=== PATIENT | female | born 1945 | race Hispanic/Latino ===

== ENCOUNTER 2017-10-21 17:17 | Emergency (ER) | payer MEDICARE ==
[2017-10-21 17:54] LABS: APPEARANCE,URINE Clear (CLEAR); BILIRUBIN,URINE Negative (NEGATIVE); COLOR,URINE Yellow (YELLOW); GLUCOSE, URINE (UA) Negative (NEGATIVE); KETONES,URINE Negative (NEGATIVE); LEUKOCYTE ESTERASE ,URINE Trace (NEGATIVE); NITRATE,URINE Negative (NEGATIVE); OCCULT BLOOD,URINE Small (NEGATIVE); PROTEIN,URINE Negative (NEGATIVE)
[2017-10-21 18:04] LABS: BACTERIA,URINE Few /HPF (None Seen); MUCUS,URINE Rare LPF (None Seen); SQUAMOUS EPITHELIAL CELL,UR Few /HPF (0-2)
[2017-10-21] MEDS ORDERED: NITROFURANTOIN MONOHYD/M-CRYST 100 MG CAPSULE PO ONE (19:06)
== END 2017-10-21 19:16 | disposition home or self-care (01) ==
LOC: EDH 17:17
DX: N30.01 Acute cystitis with hematuria (principal); E11.9 Type 2 diabetes mellitus without complications; I10 Essential (primary) hypertension; K21.9 Gastro-esophageal reflux disease without esophagitis; Z91.041 Radiographic dye allergy status; Z88.1 Allergy status to other antibiotic agents; Z88.6 Allergy status to analgesic agent; Z90.710 Acquired absence of both cervix and uterus; Z90.49 Acquired absence of other specified parts of digestive tract
CPT/HCPCS: 81001; 87088; 87186

== ENCOUNTER 2019-05-02 10:46 | Inpatient (IN) | payer MEDICARE ==
[~2019-05-02] VITALS: Ht 157.5 cm; Wt 70.1 kg
[2019-05-02 11:15] LABS: BASOPHILS % (AUTO) 0.4 % (0.0-5.0); EOSINOPHILS % (AUTO) 0.8 % (0.0-8.0); HEMATOCRIT 43.9 % (36-48); LYMPHOCYTES % (AUTO) 28.1 % (21.0-51.0); MEAN CORPUSCULAR HEMOGLOBIN 30.6 pg (27.0-33.0); MEAN CORPUSCULAR HGB CONC 34.2 g/dL (32.0-36.0); MEAN CORPUSCULAR VOLUME 89.4 fL (79-99); MONOCYTES % (AUTO) 7.1 % (3.0-13.0); NEUTROPHILS % (AUTO) 63.6 % (40.0-77.0); NUCLEATED RED BLOOD CELLS 0.1 % (0.0-0.19); PLATELET COUNT (AUTO) 204 K/uL (130-400); RED BLOOD CELL COUNT(AUTO) 4.91 MIL/uL (4.00-5.50); RED CELL DISTRIBUTION WIDTH 13.4 % (11.0-15.5); WHITE BLOOD COUNT (AUTO) 5.5 K/uL (4.8-10.8)
[2019-05-02 11:29] LABS: CREATININE 0.7 mg/dL (0.5-1.5)
[2019-05-02 11:32] LABS: INR 0.95 (0.85-1.15); PARTIAL THROMBOPLASTIN TIME 23.1 SEC (26.3-35.5)
[2019-05-02 11:33] LABS: ALBUMIN 3.9 g/dL (3.5-5.0); BILIRUBIN,TOTAL 0.8 mg/dL (0.2-1.0); TOTAL PROTEIN, SERUM 7.4 g/dL (6.0-8.3)
[2019-05-02 11:37] LABS: APPEARANCE,URINE Clear (CLEAR); BILIRUBIN,URINE Negative (NEGATIVE); COLOR,URINE Yellow (YELLOW); GLUCOSE, URINE (UA) TRACE mg/dL (NEGATIVE); KETONES,URINE Negative (NEGATIVE); LEUKOCYTE ESTERASE ,URINE Negative (NEGATIVE); NITRATE,URINE Negative (NEGATIVE); OCCULT BLOOD,URINE Negative (NEGATIVE); PROTEIN,URINE Negative (NEGATIVE)
[2019-05-02 11:42] LABS: AMPHET/METH SCREEN,URINE NEGATIVE (NEGATIVE); BARBITURATE SCREEN, URINE NEGATIVE (NEGATIVE); BENZODIAZEPINES SCREEN,URINE NEGATIVE (NEGATIVE); CANNABINOID SCREEN,URINE NEGATIVE (NEGATIVE); COCAINE SCREEN,URINE NEGATIVE (NEGATIVE); OPIATE SCREEN,URINE NEGATIVE (NEGATIVE); PHENCYCLIDINE SCREEN,URINE NEGATIVE (NEGATIVE)
[2019-05-02] MEDS ORDERED: LORAZEPAM 2 MG/ML 1 ML VIAL ONE (12:19)
[2019-05-02 12:29] LABS: BACTERIA,URINE Rare /HPF (None Seen); RBC,URINE 0-1 /HPF (0-1); SQUAMOUS EPITHELIAL CELL,UR Rare /HPF (0-2); WBC,URINE 0-1 /HPF (0-1)
[2019-05-02] MEDS ORDERED: METHYLPREDNISOLONE SOD SUCC 40MG/ML 1ML ONE (18:21)
[2019-05-02 20:40] VITALS: BP 150/69
[2019-05-02] MEDS ORDERED: OMEP40CA13 PO (21:48)
[2019-05-02] MEDS ORDERED: METF-444 PO (21:48)
[2019-05-02] MEDS ORDERED: SIMV40TA59 PO (21:48)
[2019-05-03] VITALS: BP 146/73
[2019-05-03] MEDS ORDERED: GLUCAGON 1MG KIT 1 MG ML IM PRN (02:00)
[2019-05-03] MEDS ORDERED: DEXTROSE 50%-WATER 50 ML DISP.SYRIN IV PRN (02:00)
[2019-05-03] MEDS ORDERED: ACETAMINOPHEN 325 MG TAB PO PRN (02:00)
[2019-05-03 04:00] VITALS: BP 145/72
--- NOTE | 2019-05-03 06:52 | NUR ---
MD RASHEED ALBA VISITED WITH PATIENT, POC DISCUSSED. NO NEW ORDERS AT THIS TIME. VITALS STABLE. AFEBRILE. CALL LIGHT WITHIN REACH. WILL CONTINUE TO BE OBSERVED. Addendum: 05/03/19 at 0656 by GIANA GARCÍA RN RN Amended: Links added.
[2019-05-03] MEDS: INSULIN R PO SS1 SQ SCH ×2 (07:30→11:30)
[2019-05-03 07:53] VITALS: BP 139/76
[2019-05-03] MEDS ORDERED: PANTOPRAZOLE SODIUM 40 MG TABLET.DR PO SCH (07:54)
[2019-05-03] MEDS ORDERED: METHYLPREDNISOLONE SOD SUCC 40MG/ML 1ML IVP SCH (09:00)
[2019-05-03 11:55] VITALS: BP 147/85
--- NOTE | 2019-05-03 12:46 | NUR ---
DCP CM met with pt and spouse discussed dc plans. Pt is independent prior to admission, lives at home with spouse. Pt has a shower chair, walker, nebulizer machine. Declined placement, feels safe to go back home, spouse able to assist with transportation and needs as necessary. DC plan to home once stable. CM to cont to follow up. Addendum: 05/03/19 at 1248 by DEMETRA HARO LVN CM Amended: Links added.
[2019-05-03] MEDS ORDERED: SIMVASTATIN 20 MG TABLET PO SCH (21:00)
== END 2019-05-03 15:37 | disposition home or self-care (01) | DRG 74 ==
LOC: EDH 10:46 → EDHIP 16:48 → 4BH 19:43
PROVIDERS: ADMIT Internal Medicine Nephrology; ATTEND Internal Medicine Nephrology
DX: M54.12 Radiculopathy, cervical region (principal); M19.90 Unspecified osteoarthritis, unspecified site; G43.909 Migraine, unspecified, not intractable, without status migrainosus; E11.9 Type 2 diabetes mellitus without complications; E78.5 Hyperlipidemia, unspecified; I10 Essential (primary) hypertension; J44.9 Chronic obstructive pulmonary disease, unspecified; Z90.710 Acquired absence of both cervix and uterus; Z88.5 Allergy status to narcotic agent; Z88.8 Allergy status to other drugs, medicaments and biological substances; Z91.041 Radiographic dye allergy status; Z83.3 Family history of diabetes mellitus; Z82.49 Family history of ischemic heart disease and other diseases of the circulatory system
CPT/HCPCS: 36415; 70450; 71045; 72125; 80053; 80305; 81001; 82550; 82948; 83721; 84484; 85025; 85610; 85730; 93005; G0378; J1815; J2060; J2920

== ENCOUNTER → 2019-06-03 | Outpatient (CLI) | payer MEDICARE ==
[~2019-06-03] MED LIST: METF-444 PO; OMEP40CA13 PO; SIMV40TA59 PO
== END | disposition home or self-care (01) ==
LOC: SHCH 09:34
PROVIDERS: ATTEND Internal Medicine Cardiovascular Disease
DX: I51.7 Cardiomegaly (principal); R00.2 Palpitations
CPT/HCPCS: 93306

== ENCOUNTER → 2019-12-26 | Outpatient (CLI) | payer MEDICARE | END | disposition home or self-care (01) | LOC: SHCH 14:53 | PROVIDERS: ATTEND Internal Medicine Cardiovascular Disease | DX: I87.2 Venous insufficiency (chronic) (peripheral) (principal) ==

== ENCOUNTER → 2023-06-15 | Outpatient (CLI) | payer OTHER ==
[~2023-06-15] MED LIST changes: -OMEP40CA13 PO; +OMEP40CA21 PO
== END | disposition home or self-care (01) ==
LOC: SHCH 13:32
PROVIDERS: ATTEND Internal Medicine Cardiovascular Disease
DX: I87.2 Venous insufficiency (chronic) (peripheral) (principal); I87.1 Compression of vein; I10 Essential (primary) hypertension; E78.5 Hyperlipidemia, unspecified; I49.1 Atrial premature depolarization
CPT/HCPCS: 93970

== ENCOUNTER 2024-06-14 11:03 | Emergency (ER) | payer OTHER ==
[~2024-06-14] VITALS: Ht 154.9 cm; Wt 67.1 kg
--- NOTE | 2024-06-14 11:15 | ERN ---
General Chief Complaint: Mechanical Fall Stated Complaint: fall Time Seen by MD: 11:07 Time Seen by Midlevel: 11:07 Source: patient, EMS History of Present Illness Initial Comments Patient is a 79-year-old female being brought in by EMS following a mechanical ground level fall. Patient was in the parking lot outside of the dermatology clinic when she got off her car and accidentally tripped and fell onto her right side. She does report hitting the right side of the forehead but denies any loss of consciousness. On arrival she was reporting pain to her neck and right side of the head. Initially she also had pain to the right side of her ribs but that has completely resolved. Patient was ambulatory on scene. She denies being on any blood thinners. Patient has no other concerns at this time. Allergies: Coded Allergies: azithromycin (Unverified Allergy, Intermediate, RASH, 05/02/19) Uncoded Allergies: IV IODINE,CODEINE (Allergy, Unknown, HIVES,EMESIS, 05/02/19) Home Meds Reported Medications Omeprazole (Omeprazole) 40 Mg Capsule.dr, 40 MG PO ACBKFST, CAP 05/02/19 Simvastatin (ZOCOR) 40 Mg Tablet, 40 MG PO HS, TAB 05/02/19 Metformin HCl (Metformin HCl) 500 Mg Tablet, 500 MG PO BID, TAB 05/02/19 ROS Dictation CONSTITUTIONAL: Negative except for HPI HEAD/FACE: Negative except for HPI EENT: Negative except for HPI RESPIRATORY: Negative except for HPI GASTROINTESTINAL/ABDOMINAL: Negative except for HPI GENITOURINARY: Negative except for HPI MUSCULOSKELETAL: Negative except for HPI INTEGUMENTARY: Negative except for HPI NEUROLOGICAL/PSYCH: Negative except for HPI HEMATOLOGIC/LYMPHATIC: Negative except for HPI All Systems Negative, Except as noted above. 13 point review of systems assessed and all negative except for above. Physical Exam Physical Exam Dictation Vital Signs reviewed General Appearance: Alert, oriented x 3, no acute distress, well developed, nourished. Head and Face: Right forehead contusion Eyes: PERRL, pink conjunctivas, eyelid no trauma, anterior chamber with arcus senilis. Ears: Pinnas intact and no signs of trauma or erythema ear canals clear and no discharge TM no erythema Nose: No discharge, no bleeding. Oropharynx: Mouth normal, tongue pink, pharynx clear,no erythema, tonsils no exudates, no abscesses noted, mucous membrane moist Neck: Supple, non-tender, no thyromegaly, no masses, no JVD, no bruits Breast:Deferred Chest:No tenderness, no crepitus, no paradoxical movement, no retractions Lungs:Clear, well-ventilated, symmetric, no rales, no wheezing, no rhonchi, no stridor, good breath sounds bilaterally Heart: Regular rate, regular rhythm, no murmur, no gallops Vascular: no peripheral edema, Abdomen: Soft, positive bowel sounds, nondistended, no guarding, nontender, no rebound, no masses no hepatomegaly, no splenomegaly, no Greenberg's sign, no hernias. Rectal: Deferred Genital: Deferred Neurological: Normal speech, motor function intact, sensory function intact Musculoskeletal: Neck nontender, full range of motion, back nontender, full range of motion, Extremities: nontender, full range of motion Skin: Color pink, dry, no turgor, no rash, no lacerations, no abrasions, no contusions. Lymphatic: Deferred MDM MDM: Patient is a 79-year-old female being brought in by EMS following a mechanical ground level fall. Patient was in the parking lot outside of the dermatology clinic when she got off her car and accidentally tripped and fell onto her right side. She does report hitting the right side of the forehead but denies any loss of consciousness. On arrival she was reporting pain to her neck and right side of the head. Initially she also had pain to the right side of her ribs but that has completely resolved. Patient was ambulatory on scene. She denies being on any blood thinners. Patient has no other concerns at this time. On physical examination patient has a contusion over the right forehead. She has some mild paraspinal muscle tenderness to the cervical region no midline tenderness however given her mechanism of action along with her age a CT scan of the head and neck were obtained which did not show any acute fracture. A chest x-ray was obtained to rule out any pneumothorax or rib fractures. Chest x-ray does not show any acute abnormality. Patient was observed in the emergency department for over2 hours and has remained stable. She refused pain medication in the ER. Patient is stable for discharge at this time. Differential diagnosis: Closed head injury, cervical fracture, intracranial bleed, skull fracture There are no social concerns with this patient. Prescription drug management Prescriptions will include: None Medical management and examination interpretation discussions were had by me with other qualified healthcare professionals as indicated for the patient's care. ED Course Orders Procedure Category Date Status Time Chest 1vw RAD 06/14/24 Resulted 11:12 Ct Cervical Spine W/O CT 06/14/24 Resulted Contrast 11:12 Ct Head/Brain W/O CT 06/14/24 Resulted Contrast 11:12 Vital Signs Date Time Temp Pulse Resp B/P (MAP) Pulse Ox O2 Delivery O2 Flow Rate FiO2 06/14/24 13:24 98.4 85 17 157/73 97 Room Air* 0 21 06/14/24 11:07 98.4 96 17 164/75 97 Room Air* 0 21 06/14/24 11:07 98.4 96 17 164/75 97 Room Air 0 [facility] [address] [address] IMAGING REPORT Signed PATIENT: MEHNAZ PRAKASH MR#: [id number] : 1945 SEX: F AGE: 79 LOCATION: EDH ORDER 1113 STATUS: REG ER REPORT#: [id number] SERVICE 1112 REASON: fall head injury/neck pain ORDERING PHYSICIAN: SHIRLEY RAMOS PROCEDURE: C SPIN WO - CT CERVICAL SPINE W/O CONTRAST CT CERVICAL SPINE W/O CONTRAST HISTORY: Tripped and fall COMPARISON: None TECHNIQUE: Multiple sequential axial images of the cervical spine were obtained including post processing sagittal and coronal reconstruction images. Patient was not given contrast through intravenous route. FINDINGS: There are degenerative changes with cervical spine spondylosis. Disc space narrowings are seen at C4, C5 and C6 levels. Postop changes are seen with orthopedic fixation plates and screws at C4, C5 and C6 levels with disc fusions. There is straightening of normal lordotic cervical curvature which may be related to muscle spasm or positioning. There is no loss of vertebral height. Evaluation for disc and cord pathology is limited with CT study. No evidence of fracture or dislocation is seen. IMPRESSION: 1. No fracture is seen. DJD with cervical spine spondylosis. There are postop changes limiting evaluation. CT was performed with one or more following dose reduction techniques: automated exposure control, adjustment of the mA and kv according to patient's size, or use of a iterative reconstruction technique. DICTATED BY: PATRICIA APONTE MD DATE: 06/14/24 1247 ELECTRONICALLY SIGNED BY: PATRICIA APONTE MD DATE: 06/14/24 125 [facility] [address] [place] [id number] IMAGING REPORT Signed PATIENT: MEHNAZ PRAKASH MR#: [id number] : 1945 SEX: F AGE: 79 LOCATION: ED ORDER 12 STATUS: REG [facility] REPORT#: [id number] SERVICE 111 REASON: fall ORDERING PHYSICIAN: SHIRLEY RAMOS PROCEDURE: CXR1VW - CHEST 1VW CHEST 1VW HISTORY: Status post fall COMPARISON: None FINDINGS: A frontal projection of the chest was obtained. No acute pulmonary infiltrates is seen. The heart is borderline enlarged. Degenerative changes are seen. Aortic calcifications are seen. Prominent interstitial markings. IMPRESSION: 1. No acute pulmonary infiltrate is seen. DICTATED BY: PATRICIA APONTE MD DATE: 06/14/24 1254 ELECTRONICALLY SIGNED BY: PATRICIA APONTE MD DATE: 06/14/24 1258 [facility] [address] [place] [id number] IMAGING REPORT Signed PATIENT: MEHNAZ PRAKASH MR#: [id number] : 1945 SEX: F AGE: 79 LOCATION: ED ORDER 12 STATUS: REG [facility] REPORT#: [id number] SERVICE 111 REASON: fall head injury/neck pain ORDERING PHYSICIAN: SHIRLEY RAMOS PROCEDURE: HEAD WO - CT HEAD/BRAIN W/O CONTRAST CT HEAD/BRAIN W/O CONTRAST HISTORY: Trip and fall COMPARISON: None TECHNIQUE: Multiple sequential axial images of the head were obtained from the base of the skull through vertex. Patient was not given contrast through intravenous route. FINDINGS: The ventricles and extraventricular CSF spaces are dilated consistent with cerebral atrophy. Nonspecific white matter changes seen. There is no midline shift, mass effect or herniation. No acute intracranial bleed is seen. Visualized portion of the paranasal sinuses are grossly within normal limits. IMPRESSION: 1. No acute intracranial bleed is seen. 2. Atrophy with white matter changes. CT was performed with one or more following dose reduction techniques: automated exposure control, adjustment of the mA and kv according to patient's size, or use of a iterative reconstruction technique. DICTATED BY: PATRICIA APONTE MD DATE: 06/14/24 1236 ELECTRONICALLY SIGNED BY: PATRICIA APONTE MD DATE: 06/14/24 124 DX & DISP Disposition: Discharge Departure Impression: Primary Impression: Fall Additional Impressions: Forehead contusion, Cervical strain Condition: Stable Additional Instructions: Your CT scan of the head and neck did not show any acute fracture or dislocation. Your chest x-ray is normal. You may take Tylenol and Motrin for pain. Please follow up with your primary care doctor in 2-3 days for repeat evaluation. Return to the ER for any new or worsening symptoms. Referrals: CECILIA DOE MD (PCP) Time of Disposition: 13:10 I have reviewed the case, and I agree with I performed the substantive portion of the visit. I have reviewed and personally made and approve the management plan that is documented in the note by myself or the SHANNAN. I acknowledge for responsibility for the patient's management plan. SHIRLEY RAMOS Jun 14, 2024 11:14
--- NOTE | 2024-06-14 12:49 | HMCIMG ---
CT HEAD/BRAIN W/O CONTRAST HISTORY: Trip and fall COMPARISON: None TECHNIQUE: Multiple sequential axial images of the head were obtained from the base of the skull through vertex. Patient was not given contrast through intravenous route. FINDINGS: The ventricles and extraventricular CSF spaces are dilated consistent with cerebral atrophy. Nonspecific white matter changes seen. There is no midline shift, mass effect or herniation. No acute intracranial bleed is seen. Visualized portion of the paranasal sinuses are grossly within normal limits. IMPRESSION: 1. No acute intracranial bleed is seen. 2. Atrophy with white matter changes. CT was performed with one or more following dose reduction techniques: automated exposure control, adjustment of the mA and kv according to patient's size, or use of a iterative reconstruction technique.
--- NOTE | 2024-06-14 12:51 | HMCIMG ---
CT CERVICAL SPINE W/O CONTRAST HISTORY: Tripped and fall COMPARISON: None TECHNIQUE: Multiple sequential axial images of the cervical spine were obtained including post processing sagittal and coronal reconstruction images. Patient was not given contrast through intravenous route. FINDINGS: There are degenerative changes with cervical spine spondylosis. Disc space narrowings are seen at C4, C5 and C6 levels. Postop changes are seen with orthopedic fixation plates and screws at C4, C5 and C6 levels with disc fusions. There is straightening of normal lordotic cervical curvature which may be related to muscle spasm or positioning. There is no loss of vertebral height. Evaluation for disc and cord pathology is limited with CT study. No evidence of fracture or dislocation is seen. IMPRESSION: 1. No fracture is seen. DJD with cervical spine spondylosis. There are postop changes limiting evaluation. CT was performed with one or more following dose reduction techniques: automated exposure control, adjustment of the mA and kv according to patient's size, or use of a iterative reconstruction technique.
--- NOTE | 2024-06-14 12:58 | HMCIMG ---
CHEST 1VW HISTORY: Status post fall COMPARISON: None FINDINGS: A frontal projection of the chest was obtained. No acute pulmonary infiltrates is seen. The heart is borderline enlarged. Degenerative changes are seen. Aortic calcifications are seen. Prominent interstitial markings. IMPRESSION: 1. No acute pulmonary infiltrate is seen.
[2024-06-14 13:24] VITALS: BP 157/73; PULSE 85; RESP 17; TEMP 98.4; O2SAT 97
== END 2024-06-14 13:41 | disposition home or self-care (01) ==
LOC: EDH 11:03
DX: S16.1XXA Strain of muscle, fascia and tendon at neck level, initial encounter (principal); S00.83XA Contusion of other part of head, initial encounter; Z79.84 Long term (current) use of oral hypoglycemic drugs; Z88.1 Allergy status to other antibiotic agents; Z88.5 Allergy status to narcotic agent; Z88.8 Allergy status to other drugs, medicaments and biological substances; Z91.041 Radiographic dye allergy status; W01.0XXA Fall on same level from slipping, tripping and stumbling without subsequent striking against object, initial encounter; Y93.89 Activity, other specified; Y92.481 Parking lot as the place of occurrence of the external cause; Y99.8 Other external cause status
CPT/HCPCS: 70450; 71045; 72125; 99284

== ENCOUNTER → 2024-06-18 | Outpatient (CLI) | payer OTHER ==
--- NOTE | 2024-06-18 12:48 | HMCIMG ---
Lumbar spine 2 views Comparison Study: none History: HX OF FALLING Findings: Exam of the lumbosacral spine demonstrates no evidence of fracture or subluxation. There are moderate spondylitic changes. The facet joints show moderate degenerative changes. The alignment of the spine is normal. There is degenerative disc disease of L5-S1 and there is mild dextroscoliosis. Bone mineralization is normal. Impression: Spondylitic changes and degenerative changes of the apophyseal joints as noted.
--- NOTE | 2024-06-18 12:48 | HMCIMG ---
Exam Type: SHOULDER COMP 2+VWS LT Clinical Information: PAIN IN LEFT SHOULDER Comparison: None FINDINGS: The examination is unremarkable. Specifically, the glenohumeral and acromioclavicular joints are preserved. Visualized portions of the humerus, the scapula, and the clavicle as well as the upper ribcage are unremarkable. No pulmonary pathology is noted in the visualized portions of the upper lobe. The soft tissues are preserved. There are no other gross abnormalities. IMPRESSION: NORMAL EXAMINATION.
== END | disposition home or self-care (01) ==
LOC: RAH 11:49
PROVIDERS: ATTEND Internal Medicine
DX: M47.816 Spondylosis without myelopathy or radiculopathy, lumbar region (principal); M51.379 Other intervertebral disc degeneration, lumbosacral region without mention of lumbar back pain or lower extremity pain; M41.87 Other forms of scoliosis, lumbosacral region; M25.512 Pain in left shoulder; G89.29 Other chronic pain; Z91.81 History of falling
CPT/HCPCS: 72100; 73030

== ENCOUNTER → 2024-06-20 | Outpatient (CLI) | payer OTHER ==
--- NOTE | 2024-06-20 10:38 | HMCIMG ---
BONE DENSITOMETRY: HISTORY: AGE-RELATED OSTEOPOROSIS W/O CURRENT PATHOLOGICAL FX Comparison: None FINDINGS: BMD measured at AP spine L1-L4 is 0.846 g/cm2 with a T-score of -1.8 Bone density is between 10 and 25% below young normal. This patient is considered osteopenic. Fracture risk is moderate. BMD measured at Left Femoral Neck is 0.602 g/cm2 with a T-score of -2.3 Bone density is between 10 and 25% below young normal. This patient is considered osteopenic. Fracture risk is moderate. BMD measured at Left Femoral Total is 0.757 g/cm2 with a T-score of -1.5 Bone density is between 10 and 25% below young normal. This patient is considered osteopenic. Fracture risk is moderate. IMPRESSION: Osteopenia. Treatment and follow-up recommended.
== END | disposition home or self-care (01) ==
LOC: RAH 09:48
PROVIDERS: ATTEND Internal Medicine
DX: M81.0 Age-related osteoporosis without current pathological fracture (principal); M85.89 Other specified disorders of bone density and structure, multiple sites
CPT/HCPCS: 77080

== ENCOUNTER → 2024-08-27 | Outpatient (CLI) | payer OTHER ==
--- NOTE | 2024-08-27 11:25 | HMCIMG ---
CT HEART SAVER PROMOTIONAL HISTORY: Cardiac calcification scoring. FINDINGS: The cardiac calcification scoring is 0. Limited examination of the heart was performed. The study is done for additional or incidental findings. IMPRESSION: Subcentimeter calcific density or residual food material within the mid esophagus without any esophageal abnormality. No other additional findings.
== END | disposition home or self-care (01) ==
LOC: RAH 10:42
PROVIDERS: ATTEND Internal Medicine Cardiovascular Disease
DX: Z13.6 Encounter for screening for cardiovascular disorders (principal)
CPT/HCPCS: 75571